=== PATIENT | female | born 1970 | race Two or more races ===

== ENCOUNTER 2020-05-05 03:46 | Observation (INO) ==
[2020-05-05] MEDS ORDERED: methylPREDNISolone SOD SUC 125 MG/2 ML VIAL ONE (03:54)
[2020-05-05] MEDS ORDERED: ALBUTEROL 2.5 MG/3 ML NEB RESP TX ONE ×2 (04:03→04:22)
[2020-05-05] MEDS ORDERED: methylPREDNISolone SOD SUC 125 MG/2 ML VIAL IV STA (04:24)
[2020-05-05] MEDS ORDERED: ONDANSETRON 4 MG/2 ML VIAL IV STA (04:24)
[2020-05-05] MEDS ORDERED: ALBUTEROL NEB SOLN 5 MG/ML 20 ML/BOTTLE CONT NEB SCH (04:30)
[2020-05-05 04:42] LABS: Basophils % 0.5 % (0.0-0.8); Eosinophils # 0.9 10*3/uL (0.0-0.87); Hemoglobin 12.9 GM/DL (12.0-16.0); Immature Granulocytes % 0.8 %; Immature Granulocytes Absolute 0.06 #; Lymphocytes # 1.3 10*3/uL (1.4-4.0); Lymphocytes % 17.3 % (21.3-54.2); Mean Corpuscular HGB Conc 33.1 GM/DL (32-36); Mean Corpuscular Volume 88.4 FL (87-102); Mean Platelet Volume 12.4 FL (9.6-12.0); Monocytes % 10.5 % (1.7-12.7); Neutrophils % 58.9 % (38.7-73.9); Platelet Count 142 T/CUMM (130-400); Red Blood Count 4.41 MC/CUMM (3.8-5.5); Red Cell Distribution Width 14.7 % (9.3-17.3); White Blood Count 7.5 T/CUMM (4-12)
[2020-05-05 04:55] LABS: Albumin 2.7 G/DL (3.4-5.0); Calcium 8.5 MG/DL (8.5-10.1)
[2020-05-05 04:56] LABS: Eosinophils 11 % (0-10); Hypochromasia 1+; Lymphocytes 18 % (20-55); Platelet Estimate Adequate; Segmented Neutrophils 60 % (50-85); Total Cells Counted 100
[2020-05-05] MEDS ORDERED: POTASSIUM CHLORIDE RIDER 20 MEQ in PREMIX 1 EACH IV STA (05:08)
[2020-05-05] MEDS: POTASSIUM CHLORIDE RIDER 10 MEQ in PREMIX 1 EACH IV SCH ×2 (05:21→09:56)
[2020-05-05] MEDS ORDERED: ONDANSETRON 4 MG/2 ML VIAL IV PRN (05:46)
[2020-05-05] MEDS ORDERED: GLUCAGON 1 MG VIAL IM PRN (05:46)
[2020-05-05] MEDS ORDERED: DEXTROSE 50% 25 GM/50 ML VIAL IV PRN (05:46)
[2020-05-05] MEDS ORDERED: ACETAMINOPHEN 325 MG TABLET PO PRN (05:46)
[2020-05-05] MEDS ORDERED: methylPREDNISolone SOD SUC 40 MG/1 ML VIAL IV SCH (06:00)
[2020-05-05] MEDS: ALBUTEROL/IPRATROPIUM 3 ML NEB RESP TX SCH ×4 (07:00→19:45)
[2020-05-05] MEDS ORDERED: POTASSIUM CHLORIDE 20 MEQ TABLET PO ONE (07:32)
[2020-05-05] MEDS: BUDESONIDE/FORMOTEROL 160-4.5 INHALER 6 GM INH SCH (09:52)
[2020-05-05] MEDS: ENOXAPARIN 40 MG/0.4 ML SYRINGE SUBCUT SCH (09:52)
[2020-05-05] MEDS: PANTOPRAZOLE 40 MG TABLET PO SCH (09:53)
[2020-05-05] MEDS: SODIUM CHLOR 0.9% KCL 40 MEQ 40 MEQ/1,000 ML BAG IV SCH ×2 (09:53→23:45)
[2020-05-05] MEDS: AZITHROMYCIN 250 MG TABLET PO SCH (09:53)
[2020-05-05] MEDS ORDERED: POTASSIUM CHLORIDE RIDER 10 MEQ in PREMIX 1 EACH IV SCH (10:00)
[2020-05-05] MEDS: MONTELUKAST 10 MG TABLET PO SCH (11:36)
[2020-05-05] MEDS: methylPREDNISolone SOD SUC 40 MG/1 ML VIAL IV SCH ×3 (11:38→23:45)
[2020-05-06] MEDS: ALBUTEROL/IPRATROPIUM 3 ML NEB RESP TX SCH ×3 (00:09→07:03)
[2020-05-06] MEDS: BUDESONIDE/FORMOTEROL 160-4.5 INHALER 6 GM INH SCH ×2 (00:53→08:40)
[2020-05-06] MEDS: methylPREDNISolone SOD SUC 40 MG/1 ML VIAL IV SCH (05:16)
[2020-05-06 05:43] LABS: Basophils % 0.1 % (0.0-0.8); Hematocrit 37.6 VOL% (35.7-47.0); Hemoglobin 12.2 GM/DL (12.0-16.0); Immature Granulocytes % 1.7 %; Immature Granulocytes Absolute 0.13 #; Lymphocytes # 0.3 10*3/uL (1.4-4.0); Lymphocytes % 4.3 % (21.3-54.2); Mean Corpuscular HGB Conc 32.4 GM/DL (32-36); Mean Platelet Volume 12.7 FL (9.6-12.0); Monocytes % 1.9 % (1.7-12.7); Platelet Count 140 T/CUMM (130-400); Red Blood Count 4.18 MC/CUMM (3.8-5.5); Red Cell Distribution Width 15.1 % (9.3-17.3); White Blood Count 7.9 T/CUMM (4-12)
[2020-05-06 05:48] LABS: Calcium 8.3 MG/DL (8.5-10.1)
[2020-05-06 06:06] LABS: Hypochromasia 1+; Lymphocytes 5 % (20-55); Microcytosis 1+; Platelet Estimate Adequate; Segmented Neutrophils 91 % (50-85); Total Cells Counted 100
[2020-05-06 07:45] VITALS: BP 110/59
[2020-05-06] MEDS: ENOXAPARIN 40 MG/0.4 ML SYRINGE SUBCUT SCH (08:40)
[2020-05-06] MEDS: AZITHROMYCIN 250 MG TABLET PO SCH (08:40)
[2020-05-06] MEDS: PANTOPRAZOLE 40 MG TABLET PO SCH (08:40)
[2020-05-06] MEDS: MONTELUKAST 10 MG TABLET PO SCH (08:40)
== END 2020-05-06 10:30 | disposition home or self-care (01) ==
LOC: EDUNIT# → N.EDINP 03:46 → N.ED 03:46 → N.EDINP 07:44 → N.3E 07:56
PROVIDERS: ADMIT Internal Medicine; ATTEND Internal Medicine